=== PATIENT | female | born 1950 | race Caucasian/White ===

== ENCOUNTER 2017-09-23 12:29 | Day surgery (SDC) | payer MEDICARE ==
[~2017-09-23] VITALS: Ht 175.3 cm; Wt 71.8 kg
[~2017-09-23 12:29] MED LIST: GABA300 PO; LOSA50 PO; TRAM50; TRAM50 PO
--- NOTE | 2017-09-23 15:04 | NUR ---
09/23/17 1504 Marleny Ovalles DISCHARGE INSTRUCTIONS TAUGHTER TO PT AND FAMILY. PT IS TOLERATING PO FLUIDS WELL. VSS. PT CONTINUES TO COMPLAIN OF A SLIGHT SORE THROAT. SHE WAS ADVISED SHE COULD TRY EITHER WARM OR COLD FLUIDS FOR THE PAIN. PT INFORMED SHE DID VOMIT DURING HER PROCEDURE AND THE SORE THROAT IS MOST LIKELY FROM THE STOMACH CONTENTS.
--- NOTE | 2017-09-23 15:07 | NUR ---
09/23/17 Marleny Darby PT EXPERIENCED VOMITNG DURING HER PROCEDURE. SHE DID HAVE HEAVY DROOLING JUST PRIOR TO THE EMESIS. SHE WAS GIVEN 8MG OF ZOFRAN IV. SUCTION WAS USED SEVERAL TIMES TO REMOVE SALIVA AND EMESIS FROM HER MOUTH. HER O2 SATS DROPPED TO 86% WHILE SUCTIONING BUT RETURNED QUICKLY INTO THE MID 90'S WITH A JAW THRUST AND INCREASE IN O2 TO 5LNC. DURING THE REMAINDER OF THE PROCEDURE HER VITAL SIGNS REMAINED STABLE AND THERE WAS NO FURTHER EMESIS.
== END 2017-09-23 14:55 | disposition home or self-care (01) ==
LOC: ORSCSDS 12:29
PROVIDERS: Surgery
PROC: 0DBP8ZX Excision of Rectum, Via Natural or Artificial Opening Endoscopic, Diagnostic (ICD-10-PCS; principal; 2017-09-23 13:45)
DX: Z12.11 Encounter for screening for malignant neoplasm of colon (principal); D12.8 Benign neoplasm of rectum; I10 Essential (primary) hypertension; E78.5 Hyperlipidemia, unspecified; Z87.891 Personal history of nicotine dependence; Z79.899 Other long term (current) drug therapy
CPT/HCPCS: 88305; J0330; J1980; J2405

== ENCOUNTER 2019-06-09 19:50 | Inpatient (IN) | payer MEDICARE ==
[~2019-06-09] VITALS: Ht 175.3 cm; Wt 76.6 kg
[2019-06-09 20:21] LABS: BASOPHILS ABSOLUTE AUTO 0.03 K/mm3 (0.00-0.23); BASOPHILS PERCENT AUTO 0 % (0-2); EOSINOPHILS ABSOLUTE AUTO 0.07 K/mm3 (0.00-0.68); EOSINOPHILS PERCENT AUTO 1 % (0-6); Hematocrit 40.9 % (33.0-51.0); Hemoglobin 13.4 g/dL (11.5-16.0); IMMATURE GRAN ABSOLUTE AUTO 0.02 K/mm3 (0.00-0.10); IMMATURE GRAN PERCENT AUTO 0 % (0-1); LYMPHOCYTES ABSOLUTE AUTO 2.68 K/mm3 (0.84-5.20); LYMPHOCYTES PERCENT AUTO 34 % (21-46); MONOCYTES PERCENT AUTO 9 % (4-13); Mean Corpuscular HGB 30.2 pg (26.0-34.0); Mean Corpuscular HGB Conc 32.8 g/dL (31.5-36.5); Mean Platelet Volume 10.5 fL (9.1-12.4); NEUTROPHILS ABSOLUTE AUTO 4.28 K/mm3 (1.96-9.15); NEUTROPHILS PERCENT AUTO 55 % (41-73); Platelet Count 252 K/mm3 (150-400); RDW Coefficient Variation 12.5 % (11.7-14.2); Red Blood Cell Count 4.44 M/mm3 (3.80-5.20); White Blood Cell Count 7.78 K/mm3 (4.00-11.30)
[2019-06-09 20:22] LABS: Mean Corpuscular Volume 92 fL (80-100)
[2019-06-09 20:47] LABS: Alanine Aminotransfer (ALT/SGP 23 U/L (12-78); Albumin, Blood 3.7 g/dL (3.4-5.0); Albumin/Globulin Ratio 1.1 (0.8-1.8); Alk Phos 79 U/L (50-136); Anion Gap 2 mmol/L (6-16); Aspartate Aminotrans (AST/SGOT 16 U/L (12-37); Bilirubin, Total 0.3 mg/dL (0.1-1.0); Blood Urea Nitrogen 15 mg/dL (8-24); Bun/Creatinine Ratio 22.2 (12.0-20.0); CO2, Blood 29 mmol/L (21-32); Calcium, Blood 8.6 mg/dL (8.5-10.1); Chloride, Blood 109 mmol/L (98-108); Creatinine, Blood 0.68 mg/dL (0.40-1.00); Globulin, Blood 3.3 g/dL (2.2-4.0); Glomerular Filtration Rate >60 (60-); Glucose, Blood 87 mg/dL (70-99); Potassium, Blood 3.8 mmol/L (3.5-5.5); Sodium, Blood 140 mmol/L (136-145); Troponin I 0.059 ng/mL (0.000-0.040)
--- NOTE | 2019-06-10 03:04 | NUR ---
EKG CALL TO DR. PATE TO ASK ABOUT EKG NEEDING TO BE COMPLETED AT 0501 THIS AM AND STATED NO SPECIFIC TIME IN AM FOR EKG TO BE COMPLETED, JUST SOME TIME IN THE MORNING.
--- NOTE | 2019-06-10 06:35 | NUR ---
NOC SHIFT SUMARY PT ADMITTED THIS NIGHT FOR CHEST TIGHTNESS FOR PAST 3 DAYS WITH INCREASED TROPONIN. NO COMPLAINTS OF CHEST PAIN SINCE ADMIT TO FLOOR. TELE ON SINUS RHYTHM RATE 64 AT THIS TIME PER TELECOMMUNICATIONS SWITCH TECHNICIAN. PT APPEARS TO BE SLEEPING AND IN NO ACUTE DISTRESS. VSS. THIS MORNINGS TROP LEVEL IS 0.048 WHICH IS SHOWING DOWNWARD TREND. WILL CONTINUE TO MONITOR.
--- NOTE | 2019-06-10 09:42 | NUR ---
Echocardiogram completed.
--- NOTE | 2019-06-10 10:40 | NUR ---
PT TAKEN TO THE CAGE FIGHTER FOR ANGIO GRAM, THE PT WAS A/OX3, APPEARED TO BE BREATHING EASILY , PTS AT HER SIDE
--- NOTE | 2019-06-10 11:05 | NUR ---
TRANSFERRED TO ICU 14, VIA BED, FROM [facility]; PCU STATUS BUT NO BEDS AVAILABLE. PATIENT A/O X3; DENIES PAIN; VSS. BIOX. 97% ON ROOM AIR. MONITOR SHOWS NSR WITHOUT NOTED ECTOPY. TR BAND SITE (R WRIST) INTACT; CUFF INFLATED AND ARM BOARD IN PLACE. NO SIGNS OR SX'S OF HEMATOMA OR DRAINAGE.
--- NOTE | 2019-06-10 11:20 | NUR ---
TR BAND SITE UNCHANGED. PATIENT DOZING WHEN NOT DISTURBED. NSR AND VSS.
--- NOTE | 2019-06-10 11:35 | NUR ---
TR BAND SITE UNCHANGED; PATIENT DENIES C/O.
--- NOTE | 2019-06-10 11:50 | NUR ---
TR BAND SITE UNCHANGED; RN BROUGHT WATER AND JUICE TO BEDSIDE; PATIENT THIRSTY.
--- NOTE | 2019-06-10 13:30 | NUR ---
1CC AIR REMOVED FROM TR BAND CUFF; NO S/SX'S OF BLEEDING.
--- NOTE | 2019-06-10 14:15 | NUR ---
2CC OF AIR REMOVED FROM TR BAND CUFF; BLEEDING NOTED; AIR REPLACED AND BLEEDING CLEANED UP.
--- NOTE | 2019-06-10 15:15 | NUR ---
1CC AIR REMOVED FROM CUFF; NO NOTED BLEEDING.
--- NOTE | 2019-06-10 15:20 | NUR ---
1CC AIR REMOVED FROM CUFF; SITE UNCHANGED.
--- NOTE | 2019-06-10 15:25 | NUR ---
1CC AIR REMOVED FROM CUFF; NO CHANGE IN TR BAND SITE.
--- NOTE | 2019-06-10 16:05 | NUR ---
ABITGER CC OF AIR REMOVED WITHOUT INCIDENT.
--- NOTE | 2019-06-10 16:10 | NUR ---
1 CC AIR REMOVED FROM TR BAND SITE; NO CHANGES.
--- NOTE | 2019-06-10 16:25 | NUR ---
1CC AIR REMOVED FROM CUFF; NO ISSUES.
--- NOTE | 2019-06-10 16:30 | NUR ---
1CC AIR REMOVED FROM TR BAND; ALMOST DEFLATED; SITE CLEAR.
--- NOTE | 2019-06-10 16:32 | NUR ---
REMAINDER OF AIR REMOVED; ABOUT 1.5CC COMPLETELY DEFLATED TR BAND CUFF.
--- NOTE | 2019-06-10 17:30 | NUR ---
COMPLETED DINNER AND TR BAND SITE CUFF DEFLATED FOR 1 HOUR; SITE REMAINS WITHOUT FURTHER BLEEDING OR S/SX'S OF HEMATOMA. CUFF REMOVED AND BIOCLUSIVE DRESSING PLACED AFTER CLEANSED SITE AND SURROUNDING SKIN WITH CHLORAPREP AND ALCOHOL WIPES. ARMBOARD REPLACED.
--- NOTE | 2019-06-10 17:50 | NUR ---
DISCHARGE ORDERS PLACED BY DR. DALLAS; HE IS THE HOSPITALIST THAT WILL COVER FRO DR. Vandana MARIN (HE IS OOT). DR. PARADA HERE EARLIER AND SPOKE TO DR. DALLAS ON THE PHONE RE: MEDS TO D/C PATIENT HOME ON, F/U VISITS ETC.
--- NOTE | 2019-06-10 18:05 | NUR ---
T/C TO [facility] WITH RX'S.
[2019-06-10] MEDS ORDERED: LOSA25 PO (18:11)
[2019-06-10] MEDS ORDERED: ASPI81CH PO (18:12)
[2019-06-10] MEDS ORDERED: FAMO40 PO (18:13)
[2019-06-10] MEDS ORDERED: METO25ER PO (18:27)
[2019-06-10] MEDS ORDERED: NITR.4SL SL (18:30)
--- NOTE | 2019-06-10 18:30 | NUR ---
IV DC'D AND PATIENT GETTING UP TO CHANGE CLOTHES; ORDER TO DISCHARGE PATIENT PLACED BY DR. DALLAS.
--- NOTE | 2019-06-10 18:40 | NUR ---
DISCHARGE INSTRUCTIONS GIVEN TO PATIENT AND SPOUSE WITH VERBAL AND WRITTEN UNDERSTANDING.
--- NOTE | 2019-06-10 18:50 | NUR ---
DISCHARGED WITH SPOUSE AND POWER TRANSMISSION ENGINEER; AMBULATED TO PRIVATE CAR WITHOUT DIFFICULTY; BELONGINGS AND D/C INSTRUCTIONS WITH PATIENT.
== END 2019-06-10 18:50 | disposition home or self-care (01) | DRG 287 ==
LOC: ER 19:50 → MEDS 19:51 → ICUW 06-10 04:08 → MEDS 06-10 04:08 → ICUW 06-10 11:05
PROVIDERS: Emergency Medicine; ADMIT Family Medicine
PROC: 4A023N7 Measurement of Cardiac Sampling and Pressure, Left Heart, Percutaneous Approach (ICD-10-PCS; principal; 2019-06-10)
PROC: B210YZZ Fluoroscopy of Single Coronary Artery using Other Contrast (ICD-10-PCS; 2019-06-10)
DX: I51.81 Takotsubo syndrome (principal); I10 Essential (primary) hypertension; E78.5 Hyperlipidemia, unspecified; M10.9 Gout, unspecified; M54.5 Low back pain
CPT/HCPCS: 36415; 71046; 71260; 80053; 82947; 83690; 84484; 85025; 93005; 93010; 93306; 93458; 99152; 99153; 99285-25; C1769; C1894; G0378; J1644; J1650; J2250; J3010; J7030; Q9967

== ENCOUNTER 2021-04-11 20:26 | Emergency (ER) | payer MEDICARE ==
[~2021-04-11] VITALS: Ht 170.2 cm; Wt 70.3 kg
[~2021-04-11 20:26] MED LIST changes: +ASPI81CH PO; +FAMO40 PO; +LOSA25 PO; +METO25ER PO; +NITR.4SL SL
== END 2021-04-11 22:07 | disposition home or self-care (01) ==
LOC: ER 20:26
DX: S06.0X9A Concussion with loss of consciousness of unspecified duration, initial encounter (principal); R41.3 Other amnesia; I10 Essential (primary) hypertension; E78.5 Hyperlipidemia, unspecified; Z79.82 Long term (current) use of aspirin; Z79.899 Other long term (current) drug therapy; Z87.891 Personal history of nicotine dependence; W01.10XA Fall on same level from slipping, tripping and stumbling with subsequent striking against unspecified object, initial encounter
CPT/HCPCS: 70450; 99284-25

== ENCOUNTER 2021-10-31 10:47 | Emergency (ER) | payer MEDICARE ==
[~2021-10-31] VITALS: Ht 175.3 cm; Wt 76.2 kg
[2021-10-31 11:40] LABS: BASOPHILS ABSOLUTE AUTO 0.04 K/mm3 (0.00-0.23); BASOPHILS PERCENT AUTO 1 % (0-2); EOSINOPHILS ABSOLUTE AUTO 0.11 K/mm3 (0.00-0.68); EOSINOPHILS PERCENT AUTO 1 % (0-6); Hematocrit 43.2 % (33.0-51.0); Hemoglobin 14.6 g/dL (11.5-16.0); IMMATURE GRAN ABSOLUTE AUTO 0.02 K/mm3 (0.00-0.10); IMMATURE GRAN PERCENT AUTO 0 % (0-1); LYMPHOCYTES ABSOLUTE AUTO 2.17 K/mm3 (0.84-5.20); LYMPHOCYTES PERCENT AUTO 28 % (21-46); MONOCYTES ABSOLUTE AUTO 0.57 K/mm3 (0.16-1.47); MONOCYTES PERCENT AUTO 7 % (4-13); Mean Corpuscular HGB Conc 33.8 g/dL (31.5-36.5); Mean Corpuscular Volume 89 fL (80-100); Mean Platelet Volume 10.6 fL (9.1-12.4); NEUTROPHILS PERCENT AUTO 62 % (41-73); Platelet Count 292 K/mm3 (150-400); RDW Coefficient Variation 12.6 % (11.7-14.2); RDW Standard Deviation 41.4 fL (35.1-46.3); Red Blood Cell Count 4.86 M/mm3 (3.80-5.20); White Blood Cell Count 7.71 K/mm3 (4.00-11.30)
[2021-10-31 11:44] LABS: Alanine Aminotransfer (ALT/SGP 26 U/L (12-78); Albumin, Blood 3.7 g/dL (3.4-5.0); Alk Phos 66 U/L (50-136); Anion Gap 4 mmol/L (6-16); Aspartate Aminotrans (AST/SGOT 17 U/L (12-37); Bilirubin, Total 0.3 mg/dL (0.1-1.0); Blood Urea Nitrogen 15 mg/dL (8-24); Bun/Creatinine Ratio 28.1 (12.0-20.0); CO2, Blood 28 mmol/L (21-32); Calcium, Blood 8.9 mg/dL (8.5-10.1); Chloride, Blood 108 mmol/L (98-108); Creatinine, Blood 0.53 mg/dL (0.40-1.00); Globulin, Blood 3.6 g/dL (2.2-4.0); Glomerular Filtration Rate >60 (60-); Glucose, Blood 112 mg/dL (70-99); Potassium, Blood 4.2 mmol/L (3.5-5.5); Sodium, Blood 140 mmol/L (136-145); Total Protein, Blood 7.3 g/dL (6.4-8.2); Troponin I <0.015 ng/mL (0.000-0.040)
[2021-10-31] MEDS ORDERED: Robaxin750 MG PO (14:00)
[2021-10-31] MEDS ORDERED: METSALMENC TOP (14:00)
== END 2021-10-31 14:19 | disposition home or self-care (01) ==
LOC: ER 10:47
PROVIDERS: Physician Assistant
DX: S29.011A Strain of muscle and tendon of front wall of thorax, initial encounter (principal); M62.830 Muscle spasm of back; E78.5 Hyperlipidemia, unspecified; I10 Essential (primary) hypertension; Z79.899 Other long term (current) drug therapy; X58.XXXA Exposure to other specified factors, initial encounter
CPT/HCPCS: 36415; 71046; 80053; 84484; 85025; 93005; 93010; 96374; 99284-25; A9270; J1885

== ENCOUNTER 2024-09-15 07:45 | Day surgery (SDC) | payer MEDICARE ==
[2024-09-15] VITALS (14 sets, daily range): BP systolic 104–164; BP diastolic 50–97
[~2024-09-15] VITALS: Ht 175.3 cm; Wt 73.8 kg
[~2024-09-15 07:45] MED LIST changes: +Acetaminophen 500 MG Tab PO SCH; +CeFAZolin Sodium 2,000 MG in NS 100 ML IV SCH; +Chlorhexidine Mouth Care 15 ML UDC MT SCH; +Lactated Ringer's 1,000 ML IV SCH; +METSALMENC TOP; +OxyCODONE HCL 10 MG TABCR PO SCH; +Robaxin750 MG PO; +Ropivacaine 0.5% HCl/Pf 123.125 MG,EPINEPHrine HCL 0.25 MG,Ketorolac Tromethamine 15 MG... INFIL SCH; +Tranexamic Acid 1,000 MG in NS 100 ML IV SCH
[2024-09-15] MEDS ORDERED: CeFAZolin Sodium 2,000 MG VIAL ONE (08:02)
--- NOTE | 2024-09-15 08:36 | NUR ---
Ambulatory in Day Surgery History, Chart, Medications and Allergies reviewed before start of procedure. Pre-Op teaching done. Pt verbalizes understanding.
[2024-09-15] MEDS ORDERED: Lactated Ringer's 1,000 ML IV SCH (09:55)
[2024-09-15] MEDS ORDERED: Magnesium Hydroxide Conc 10 ML UDC PO PRN (09:55)
[2024-09-15] MEDS ORDERED: Promethazine HCl 25 MG Tab PO PRN (10:00)
[2024-09-15] MEDS ORDERED: DiphenhydrAMINE HCL 25 MG Cap PO PRN (10:00)
[2024-09-15] MEDS ORDERED: FLU VACC TS2024-25(6MOS UP)/PF 45 MCG/0.5 ML SYRINGE IM SCH (10:00)
[2024-09-15] MEDS ORDERED: HYDROmorphone HCl/Pf 1MG SYR IV PRN ×3 (10:00→11:00)
[2024-09-15] MEDS ORDERED: Bisacodyl 10 MG Supp PR PRN (10:05)
[2024-09-15] MEDS ORDERED: Ondansetron HCl 2 MG / ML 2ML Vial IV PRN ×3 (10:05→11:00)
[2024-09-15] MEDS ORDERED: Metoclopramide HCl 5MG / ML 2ML Vial IV PRN (10:05)
[2024-09-15] MEDS ORDERED: Prochlorperazine Edisylate 10 mg Vial IV PRN (10:05)
[2024-09-15] MEDS ORDERED: OxyCODONE HCL 5 MG TAB PO PRN ×2 (10:05→11:15)
[2024-09-15] MEDS ORDERED: FentaNYL Citrate 50 MCG/ML 2 ML Injection ONE (10:10)
[2024-09-15] MEDS ORDERED: Midazolam HCl 1MG / ML 2ML Vial ONE (10:12)
[2024-09-15] MEDS ORDERED: propofoL 40 ML IV ONE (10:27)
[2024-09-15] MEDS ORDERED: Ketorolac Tromethamine 30mg Vial ONE (10:37)
[2024-09-15] MEDS ORDERED: Ondansetron HCl 2 MG / ML 2ML Vial ONE (10:37)
[2024-09-15] MEDS ORDERED: Dexamethasone Sod Phos 10 MG/ML 1ML VIAL ONE (10:37)
[2024-09-15] MEDS ORDERED: FentaNYL Citrate 50 MCG/ML 2 ML Injection IV PRN ×2 (10:55→11:00)
[2024-09-15] MEDS ORDERED: Albuterol 2.5 MG/3 ML VIAL INH PRN ×2 (10:55→11:00)
[2024-09-15] MEDS ORDERED: Phenylephrine HCl 100 MCG/ML-NS 10MLSYR (1MG/10ML) ONE (11:20)
[2024-09-15] MEDS ORDERED: Lidocaine HCl 2% 20 ML MDV ONE (11:25)
[2024-09-15] MEDS ORDERED: propofoL 20 ML IV ONE (11:44)
[2024-09-15] MEDS ORDERED: Ketorolac Tromethamine 15mg Vial IV SCH (12:00)
--- NOTE | 2024-09-15 12:59 | NUR ---
ARRIVAL TO UNIT AFTER RECEIVING REPORT FROM PAPER TESTER, PATIENT TRANSFERRED TO UNIT AT APPROX 1240. PATIENT ALERT AND ORIENTED X4. COMMUNICATING NEEDS EFFECTIVELY. VSS. S/P L CANDY WITH SPINAL - DENIES SENSATION TO BLE, UNABLE TO WIGGLE TOES. PPP. AQUACEL DRESSING C/D/I. DENIES PAIN. COOLING DEVICE IN PLACE. TOLERATING SMALL SNACKS AND WATER - IVF INFUSING PER EMAR. TITRATED FROM 2L TO ROOM AIR, SATs >90%. RR EVEN, UNLABORED. CALL LIGHT IN REACH.
[2024-09-15] MEDS ORDERED: Acetaminophen 500 MG Tab PO SCH (16:00)
--- NOTE | 2024-09-15 17:49 | NUR ---
SHIFT SUMMARY NO ACUTE CHANGES SINCE PREVIOUS DOCUMENTATION. REMAINS ALERT AND ORIENTED X4. RECEPTIVE TO EDUCATION. COMMUNICATES NEEDS EFFECTIVELY. VSS. S/P L CANDY - IS REPORTING SOME SENSATION TO BLE, ABLE TO WIGGLE TOES. AQUACEL DRESSING C/D/I. TOLERATING PO INTAKE - SALINE LOCKED. USED BEDPAN TO VOID. WAS UNABLE TO WORK WITH PHYSICAL THERAPY TODAY DUE TO SPINAL RECOVERY. PAIN TOLERABLE WITH SCHEDULED MEDICATIONS AND COOLING DEVICE. WORKED WITH PHYSICAL AND OCCUPATIONAL THERAPY TODAY. CALL LIGHT IN REACH. CURRENTLY SITTING IN RECLINER EATING DINNER. WILL CONTINUE TO MONITOR AND REPORT TO ONCOMING RN.
[2024-09-15] MEDS ORDERED: CeFAZolin Sodium 2,000 MG in NS 100 ML IV SCH (18:30)
[2024-09-15] MEDS ORDERED: Docusate Sodium 100 MG Cap PO SCH (21:00)
[2024-09-15] MEDS ORDERED: Gabapentin 300 MG Cap PO SCH (21:00)
[2024-09-16 00:06] VITALS: BP 107/61
[2024-09-16 00:46] VITALS: BP 124/88
[2024-09-16 03:47] VITALS: BP 129/67
--- NOTE | 2024-09-16 04:39 | NUR ---
SHIFT SUMMARY PT POD 0 L CANDY. PT PAIN HAS BEEN MANAGED WITH MEDS PER EMAR. PT HAS BEEN UP AND AMBULATING WITHOUT DIFFICULTY. VOIDING AND TOLERATING PO INTAKE. VITALS STABLE. SURGICAL SITE WNL. PLAN IS FOR DC TODAY. BED IN LOWEST POSITION, CALL LIGHT WIHTHIN REACH.
[2024-09-16 05:17] LABS: BASOPHILS ABSOLUTE AUTO 0.02 K/mm3 (0.00-0.23); BASOPHILS PERCENT AUTO 0 % (0-2); EOSINOPHILS PERCENT AUTO 0 % (0-6); Hematocrit 33.5 % (33.0-51.0); Hemoglobin 11.4 g/dL (11.5-16.0); IMMATURE GRAN ABSOLUTE AUTO 0.09 K/mm3 (0.00-0.10); IMMATURE GRAN PERCENT AUTO 1 % (0-1); LYMPHOCYTES ABSOLUTE AUTO 1.22 K/mm3 (0.84-5.20); LYMPHOCYTES PERCENT AUTO 7 % (21-46); MONOCYTES ABSOLUTE AUTO 1.28 K/mm3 (0.16-1.47); MONOCYTES PERCENT AUTO 7 % (4-13); Mean Corpuscular HGB 30.3 pg (26.0-34.0); Mean Corpuscular Volume 89 fL (80-100); Mean Platelet Volume 11.3 fL (9.1-12.4); NEUTROPHILS ABSOLUTE AUTO 14.59 K/mm3 (1.96-9.15); NEUTROPHILS PERCENT AUTO 85 % (41-73); Platelet Count 202 K/mm3 (150-400); RDW Coefficient Variation 12.4 % (11.7-14.2); RDW Standard Deviation 40.5 fL (35.1-46.3); Red Blood Cell Count 3.76 M/mm3 (3.80-5.20)
[2024-09-16 05:42] LABS: Bun/Creatinine Ratio 26.2 (12.0-20.0); Calcium, Blood 8.7 mg/dL (8.5-10.1); Creatinine, Blood 0.61 mg/dL (0.40-1.00); Potassium, Blood 4.2 mmol/L (3.5-5.5)
[2024-09-16 07:13] VITALS: BP 109/50
[2024-09-16] MEDS ORDERED: Losartan Potassium 25 MG Tab PO SCH (09:00)
[2024-09-16] MEDS ORDERED: Metoprolol Succinate 25 MG TABCR PO SCH (09:00)
[2024-09-16] MEDS ORDERED: Aspirin 81 MG Chew PO SCH (09:00)
[2024-09-16 09:22] VITALS: BP 111/55
--- NOTE | 2024-09-16 10:22 | NUR ---
DISCHARGE: PT IS VOIDING, AMBULATING, SURGICAL SITE WNL. DC PACKET PRINTED AND PT EDUCATED. IV DC'D BY RN STUDENT. PT LEFT UNIT VIA WHEELCHAIR WITH BOOT AND SADDLE REPAIR PERSON AT ABOUT 1030
== END 2024-09-16 10:27 | disposition home or self-care (01) ==
LOC: ORSCMMR 07:45 → ORD 09:15 → ORSCMMR 09:15 → SURS 12:32 → ORSCMMR 09-16 10:27
PROVIDERS: Orthopaedic Surgery
PROC: 0SRB0JA Replacement of Left Hip Joint with Synthetic Substitute, Uncemented, Open Approach (ICD-10-PCS; principal; 2024-09-15 09:15)
DX: M16.12 Unilateral primary osteoarthritis, left hip (principal); I10 Essential (primary) hypertension; Z79.899 Other long term (current) drug therapy; Z87.891 Personal history of nicotine dependence
CPT/HCPCS: 36415; 72170; 80048; 85025; 97110; 97116; 97162; A6010; A9270; C1776; J0171; J0690; J0735; J1100; J1885; J2250; J2371; J2405; J2704; J2795; J3010; J7120